=== PATIENT | male | born 1960 | race Caucasian/White ===

== ENCOUNTER 2020-07-24 13:32 | Emergency (ER) | payer OTHER ==
[~2020-07-24] VITALS: Ht 160 cm; Wt 61.2 kg
[~2020-07-24 13:32] MED LIST: AMLO5TAB4 PO; APIX5TAB PO; DOCU-144 PO; ENTE0.5T4 PO; MAGN400T10 PO; METO25TA6 PO; PANT20TA2 PO; TACR1CAP2 PO; VALG450T4 PO
[2020-07-24 13:45] VITALS: BP_SYST 136
--- NOTE | 2020-07-24 14:01 | NUR ---
placed in bed 2
--- NOTE | 2020-07-24 14:02 | NUR ---
Patient is awake,alert, and oriented x3. Patient states he had diarrhea and abdominal pain starting arond 1100 today. Patient was recently discharged from [facility] for GI bleed.
[2020-07-24 14:29] LABS: BASOPHILS # (AUTO) 0.1 K/uL (0.0-0.2); BASOPHILS % (AUTO) 0.6 % (0.0-2.0); EOSINOPHILS % (AUTO) 0.1 % (0.0-4.0); HEMATOCRIT 33.5 % (36-54); HEMOGLOBIN 10.8 g/dL (14.0-18.0); LYMPHOCYTES # (AUTO) 0.5 K/uL (1.0-5.5); LYMPHOCYTES % (AUTO) 3.4 % (20.5-51.5); MEAN CORPUSCULAR HEMOGLOBIN 28 pg (27-31); MEAN CORPUSCULAR HGB CONC 32 % (32-36); MEAN CORPUSCULAR VOLUME 86 fL (79.0-98.0); MONOCYTES # (AUTO) 0.8 K/uL (0.0-1.0); MONOCYTES % (AUTO) 5.4 % (1.7-9.3); NEUTROPHILS # (AUTO) 12.7 K/uL (1.8-7.7); NEUTROPHILS % (AUTO) 90.5 % (40.0-70.0); PLATELET COUNT (AUTO) 231 K/uL (130-430); RED CELL DISTRIBUTION WIDTH 16.3 % (9.0-15.0); WHITE BLOOD COUNT (AUTO) 14.1 K/uL (4.8-10.8)
[2020-07-24 14:34] LABS: CALCIUM 9.5 mg/dL (8.4-11.0); CREATININE 0.93 mg/dL (0.55-1.30); POTASSIUM 4.5 mmol/L (3.5-5.1)
[2020-07-24 14:40] LABS: ALBUMIN 3.8 g/dL (3.4-4.8); TOTAL BILIRUBIN 0.6 mg/dL (0.0-1.0)
[2020-07-24 14:42] LABS: PROTHROMBIN TIME 10.7 SECS (9.5-12.5)
--- NOTE | 2020-07-24 14:53 | NUR ---
Report given to MAC Munoz for continuation of care. All patient needs endorsed.
--- NOTE | 2020-07-24 15:00 | NUR ---
ER Dr. CLEMONS at bedside examining patient.
--- NOTE | 2020-07-24 15:00 | NUR ---
REPORT RECEIVED FROM [facility] DIRECTORMAC ARCHULETA FOR CONTINUATION OF CARE
--- NOTE | 2020-07-24 15:05 | NUR ---
PT. A&Ox3 CC 05/21 [facility] MIDLINE UPER UMBILICUS ABD PAIN NON RADIATING x1 DAY PT. DISCHARGED YESTERDAY AFTER BEING ADMITTED FOR GI BLEED PT. STATES HE HAS BEEN HAVING BLACK STOOLS AND ABD PAIN SINCE YESTERDAY. WILL CONTINUE TO MONITOR Addendum: 07/24/20 at 1543 by [email or web address] PT. A&Ox3 CC 05/21 [place] MIDLINE UPER UMBILICUS ABD PAIN NON RADIATING x1 DAY PT. DISCHARGED YESTERDAY AFTER BEING ADMITTED FOR GI BLEED PT. STATES HE HAS BEEN HAVING BLACK STOOLS AND ABD PAIN SINCE YESTERDAY. PT. HAS NO ALLERGIES. PT. HAS A HISTORY OF LIVER TRASNPLANT AT [facility]. WILL CONTINUE TO MONITOR
[2020-07-24] MEDS ORDERED: MORPHINE 2 MG/ML INJ. SYRINGE IVP ONE ×2 (15:15→17:15)
[2020-07-24] MEDS ORDERED: ONDANSETRON HCL 4 MG/2 ML VIAL IVP ONE (15:15)
[2020-07-24] MEDS ORDERED: ONDANSETRON HCL 4 MG/2 ML VIAL ONE (15:49)
--- NOTE | 2020-07-24 16:01 | NUR ---
CT AT BEDSIDE PT. AMBULATORY WITHOUT ASSISTANCE GOING VIA WHEEL CHAIR
--- NOTE | 2020-07-24 17:10 | NUR ---
PT IN 03/21 PAIN MD DANIELLE NOTIFIED Addendum: 07/24/20 at 1759 by [email or web address] PT IN 03/21 PAIN MD DEONTE CAPUTO
--- NOTE | 2020-07-24 17:10 | NUR ---
MD DANIELLE AT [facility] Addendum: 07/24/20 at 1759 by [email or web address] MD CLEMONS AT [facility]
[2020-07-24] MEDS ORDERED: MORPHINE 2 MG/ML INJ. SYRINGE ONE (17:21)
[2020-07-24] MEDS ORDERED: LORazepam 2 MG/ML VIAL IVP ONE (17:45)
--- NOTE | 2020-07-24 17:45 | NUR ---
PT. HAVING MILD ANXIETY AND REQUESTS MEDICATION MD DANIELLE AWARE Addendum: 07/24/20 at 1800 by [email or web address] PT. HAVING MILD ANXIETY AND REQUESTS MEDICATION MD DEONTE MEJIA
[2020-07-24] MEDS ORDERED: LORazepam 2 MG/ML VIAL ONE (17:46)
[2020-07-24 17:56] VITALS: BP_SYST 120
--- NOTE | 2020-07-24 17:57 | NUR ---
Patient given written and verbal discharge instructions and verbalizes understanding. ER MD CLEMONS discussed with patient the results and treatment provided. Patient in stable condition. ID arm band removed. IV catheter removed intact and dressing applied, no active bleeding. Rx of ATIVAN, TRAMADOL, ADN ZOFRAN given. Patient educated on pain management and to follow up with PMD. Pain Scale 6/10 Opportunity for questions provided and answered. Medication side effect fact sheet provided.
== END 2020-07-24 17:56 | disposition home or self-care (01) ==
LOC: SED 13:32
DX: K43.9 Ventral hernia without obstruction or gangrene (principal); R10.9 Unspecified abdominal pain; R11.10 Vomiting, unspecified; Z79.899 Other long term (current) drug therapy
CPT/HCPCS: 36415; 74176; 76376; 80053; 85025; 85610; 85730; 96374; 96375; 96376; 99284; J2060; J2270; J2405